=== PATIENT | female | born 1975 | race Native Hawaiian/Other Pacific Islander ===

== ENCOUNTER 2016-09-17 18:51 | Emergency (ER) | payer MEDICAID ==
[2016-09-17 20:10] VITALS: BP 103/75
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
[2016-09-17] MEDS ORDERED: EMTRIVA PO SCH (22:00)
[2016-09-17] MEDS ORDERED: VIREAD PO SCH (22:00)
[2016-09-17] MEDS ORDERED: BOOSTRIX IM ONE (22:02)
[2016-09-17] MEDS ORDERED: MOTRIN PO ONE (22:02)
[2016-09-17] MEDS ORDERED: ISENTRESS PO SCH (22:04)
[2016-09-17 22:27] LABS: Basophils % (Auto) 0.5 % (0.0-1.8); Eosinophils % (Auto) 1.5 % (0.0-4.3); Hematocrit 42.3 % (30.3-42.9); Hemoglobin 13.8 gm/dl (10.1-14.3); Mean Corpuscular HGB Conc 33 % (30-34); Mean Corpuscular Hemoglobin 26 pg (28-32); Mean Corpuscular Volume 81 fl (79-97); Platelet Count 173 K/mm3 (140-440); Red Blood Count 5.23 M/mm3 (3.65-5.03); Red Cell Distribution Width 13.9 % (13.2-15.2)
[2016-09-17 22:29] LABS: Bilirubin,Urine NEG (Negative); Blood,Urine NEG (Negative); Ketones,Urine NEG (Negative); Leukocyte Esterase,Urine NEG (Negative); Mucus,Urine FEW /HPF; Nitrite,Urine NEG (Negative); Protein,Urine <15 mg/dL mg/dL (Negative); Urobilinogen,Urine < 2.0 mg/dL (<2.0)
[2016-09-17 22:43] LABS: Alanine Aminotransferase 18 units/L (7-56); Albumin 3.9 g/dL (3.9-5); Albumin/Globulin Ratio 1.3 %; Alkaline Phosphatase 70 units/L (35-129); Anion Gap 18 mmol/L; BUN/Creatinine Ratio 25.71; Blood Urea Nitrogen 18 mg/dL (7-17); Calcium 8.8 mg/dL (8.4-10.2); Carbon Dioxide 23 mmol/L (22-30); Chloride 101.6 mmol/L (98-107); Glucose 96 mg/dL (65-100); Potassium 3.7 mmol/L (3.6-5.0); Sodium 139 mmol/L (137-145); Total Protein 6.8 g/dL (6.3-8.2)
[2016-09-17 22:44] LABS: Bilirubin,Direct < 0.2 mg/dL (0-0.2)
[2016-09-17 23:00] LABS: HIV-1 Antigen p24 Non React (Non React); HIVR-1/2 Ab Non React (Non React)
[2016-09-18] MEDS ORDERED: EMTRIVA 200 MG, VIREAD 300 MG PO SCH (10:00)
== END 2016-09-17 22:58 | disposition other institution (70) ==
LOC: ED 18:51
DX: S60.512A Abrasion of left hand, initial encounter (principal); M79.1 Myalgia; S60.511A Abrasion of right hand, initial encounter; Y08.89XA Assault by other specified means, initial encounter; Y93.9 Activity, unspecified; Y92.9 Unspecified place or not applicable; Y99.9 Unspecified external cause status
CPT/HCPCS: 36415; 80048; 80074; 81001; 81025; 85025; 87806; 90471; 90715